=== PATIENT | male | born 1950 | race Caucasian/White ===

== ENCOUNTER 2024-05-25 15:04 | Inpatient (IN) | payer MEDICARE, SELFPAY ==
[2024-05-25] VITALS (28 sets, daily range): BP systolic 120–166; BP diastolic 67–103; PULSE 69–90; RESP 11–22; TEMP 36.3–36.4; O2SAT 86–99; BMI 28.5
--- NOTE | 2024-05-25 15:24 | EKG_ITS ---
[address] [id number] [address] [address] Test Date: 2024-05-25 Pat Name: Srinath Tinoco Department: Room: Gender: Male Services Program Manager: JESSICAJamie : 1950 Requested By: Order Number: [id number] Reading MD: Alcides Martínez MD Measurements Intervals [place] Rate: 78 P: [place]: 168 QRS: 166 QRSD: 138 T: 33 QT: 434 QTc: 494 Interpretive Statements AV dual-paced rhythm with occasional premature ventricular complexes Electronically Signed On 05-26-2024 8:26:12 PDT by Alcides Martínez MD
[2024-05-25 15:47] LABS: Add Manual Diff / Slide Review NO; Basophils Absolute Auto 100 /uL (0-100); Basophils Percent Auto 0.9 % (0-2); Eosinophils Absolute Auto 100 /uL (0-450); Eosinophils Percent Auto 1.2 % (2-4); Hematocrit 40.7 % (41-53); Hemoglobin 13.9 g/dL (13.5-17.5); Lymphocytes Absolute Auto 1600 /uL (1100-4500); Lymphocytes Percent Auto 23.5 % (25-40); Mean Corpuscular Hemoglobin 31.5 PG (26-34); Mean Corpuscular Volume 92.5 fL (80-100); Monocytes Absolute Auto 400 /uL (0-900); Neutrophils Absolute Auto 4700 /uL (1500-7000); Neutrophils Percent Auto 68.4 % (50-75); Platelet Count 225 X10^3/uL (150-400); Red Blood Cell Count 4.41 X10^6/uL (4.5-5.9); Red Cell Distribution Width 13.7 % (11.6-14.8); White Blood Cell Count 6.8 X10^3/uL (4.5-11.0)
[2024-05-25 15:55] LABS: Alanine Aminotransferase 29 IU/L (<50); Albumin 4.6 g/dL (3.5-5.0); Albumin Globulin Ratio 1.3 (1.0-2.8); Alkaline Phosphatase 111 U/L (38-126); Aspartate Aminotransferase 34 IU/L (17-59); BUN Creatinine Ratio 12.9 (6-22); Bilirubin Total 0.9 mg/dL (0.2-1.3); Blood Urea Nitrogen 16 mg/dL (9-20); Calcium 10.1 mg/dL (8.4-10.2); Carbon Dioxide 27 mmol/L (22-32); Chloride 103 mmol/L (98-107); Estimated Glomerular Filt Rate > 60 mL/min (>60); Globulin 3.6 g/dL (1.7-4.1); Glucose 103 mg/dL (80-110); HEMOLYSIS < 15 (0-50); Lipase 100 U/L (23-300); Potassium 4.1 mmol/L (3.4-5.1); Sodium 137 mmol/L (137-145); Total Protein 8.2 g/dL (6.3-8.2)
--- NOTE | 2024-05-25 16:05 | ED.GENADULT ---
HPI - General Adult <Janine Freeman MD - Last Filed: 05/30/24 07:12> General Chief complaint: Abdominal Pain Stated complaint: digestive issues sent by [facility] Time Seen by Provider: 05/25/24 15:47 Mode of arrival: Family Vehicle History of Present Illness HPI narrative: 74-year-old gentleman with multiple abdominal issues after diverticulitis with complications open abdominal surgery ended up having a stomach stapling same time for weight loss he has had bleeding ulcers presumably related to the stomach stapling. He does have a history of gastritis is currently on omeprazole for the last 24 hours has been having increasing abdominal distention and significant pain. Additional problems include pacemaker, diabetes. Not currently having chest pain he is nauseated but not vomiting. States that he had a bowel movement yesterday. Has not had any gas passing over the last 12 hours but states that he took quite a bit of Gas-X to relieve the gas. Related Data Home Medications Medication Instructions Recorded Confirmed atorvastatin 20 mg tablet 20 mg PO ONCE PM 05/25/24 05/25/24 empagliflozin 10 mg tablet 10 mg PO DAILY 05/25/24 05/25/24 (Jardiance) ezetimibe 10 mg tablet 10 mg PO DAILY 05/25/24 05/25/24 irbesartan 300 mg tablet 300 mg PO DAILY 05/25/24 05/25/24 nebivolol 5 mg tablet 5 mg PO DAILY 05/25/24 05/25/24 omeprazole 40 mg capsule,delayed 40 mg PO BID 05/25/24 05/25/24 release semaglutide 0.25 mg or 0.5 mg (2 1 mg SUBCUT WEEKLY Diabetes 05/25/24 05/25/24 mg/3 mL) subcutaneous pen injector (Ozempic) sucralfate 1 gram tablet 1 g PO BID 05/25/24 05/25/24 testosterone 2 pump topical DAILY 05/25/24 05/25/24 Allergies Allergy/AdvReac Type Severity Reaction Status Date / Time No Known Drug Allergies Allergy Verified 05/25/24 15:16 Review of Systems <Janine Freeman MD - Last Filed: 05/30/24 07:12> Review of Systems Narrative: Pertinent positive and negative findings as per HPI Patient History <Janine Freeman MD - Last Filed: 05/30/24 07:12> Medical History History of gastric ulcer History of diverticulitis Pacemaker Surgical History History of gastric stapling Social History household members: family Smoking Status: Never smoker Smoking Status: Never smoker alcohol intake frequency: 3 or more drinks per day Substance Use Type: does not use Exam <Janine Freeman MD - Last Filed: 05/30/24 07:12> Initial Vital Signs Initial Vital Signs: Vital Signs Temperature 97.5 F L 05/25/24 15:12 Pulse Rate 74 05/25/24 15:12 Respiratory Rate 16 05/25/24 15:12 Pulse Oximetry 98 05/25/24 15:12 Oxygen Delivery Method Room Air 05/25/24 15:12 General: Healthy appearing, in no acute distress. Able to give a complete and coherent history. Well-nourished well-developed HEENT: Moist mucous membranes, normal sclera with reactive pupils, Respiratory: Lungs are clear to auscultation, no wheezing no rales no rhonchi. Full and symmetrical air movement Cardiac: Regular rate and rhythm no murmurs no bruits Abdomen: Belly is distended, tender without rebound or guarding Skin: Warm and dry, no rashes Neurologic: Grossly neurologically intact with no obvious asymmetries or abnormalities Extremities: No trauma, Psych: Cooperative, appropriate insight and affect <Kimberlee Cam MD - Last Filed: 05/26/24 01:25> Initial Vital Signs Initial Vital Signs: Vital Signs Temperature 97.5 F L 05/25/24 15:12 Pulse Rate 74 05/25/24 15:12 Respiratory Rate 16 05/25/24 15:12 Pulse Oximetry 98 05/25/24 15:12 Oxygen Delivery Method Room Air 05/25/24 15:12 Course <Janine Freeman MD - Last Filed: 05/30/24 07:12> Orders Ordered: Discontinued Medications Acetaminophen (Acetaminophen 325 Mg Tablet) 650 mg PO Q6H PRN PRN Reason: Fever/Mild Pain (1-3) Acetaminophen (Acetaminophen 325 Mg Tablet) 650 mg PO NOW ONE Stop: 05/25/24 22:54 Last Admin: 05/26/24 00:01 Dose: Not Given Documented By: ESTRELLA Bupivacaine HCl (Bupivacaine 0.5% (Pf) 30 Ml Vial) 30 ml INJ NOW ONE Stop: 05/25/24 22:23 Last Admin: 05/25/24 22:22 Dose: 10 ml Documented By: CLAY Bupivacaine HCl/Epinephrine Bitart (Bupivacaine 0.5% W/ Epi (Pf) 30 Ml Vial) 30 ml INJ NOW ONE Stop: 05/25/24 22:09 Last Admin: 05/26/24 07:23 Dose: Not Given Documented By: Enoxaparin Sodium (Enoxaparin 40 Mg/0.4 Ml Syringe) 40 mg SUBCUT DAILY [facility] Last Admin: 05/26/24 08:30 Dose: 40 mg Documented By: Fentanyl (Fentanyl 100 Mcg/2 Ml Inj) 0 mcg IV Q5MIN PRN PRN Reason: Pain, Severe (7-10) Hydromorphone HCl (Hydromorphone 0.5 Mg Inj) 0.5 mg IV Q15MIN PRN PRN Reason: Pain, Last Admin: 05/25/24 17:49 Dose: 0.5 mg Documented By: LAZARO Hydromorphone HCl (Hydromorphone 1 Mg Inj) 1 mg IV NOW ONE Stop: 05/25/24 19:34 Last Admin: 05/25/24 19:47 Dose: 1 mg Documented By: SVEN Hydromorphone HCl (Hydromorphone 0.5 Mg Inj) 0.5 mg IV Q2H PRN PRN Reason: Pain, Severe (7-10) Hydromorphone HCl (Hydromorphone 1 Mg Inj) 0 mg IV Q5MIN PRN PRN Reason: Pain, Mild (1-3) Sodium Chloride (Normal Saline 0.9%) 1,000 mls @ 1,000 mls/hr IV BOLUS ONE Stop: 05/25/24 18:11 Last Infusion: 05/25/24 18:51 Dose: Infused Documented By: Admin: 05/25/24 17:50 Dose: 1,000 mls/hr Documented By: LAZARO Sodium Chloride (Normal Saline 0.9%) 1,000 mls @ 100 mls/hr IV CONT [facility] Last Admin: 05/25/24 23:35 Dose: Not Given Documented By: ESTRELLA Metronidazole (Flagyl) 500 mg in 100 mls @ 100 mls/hr IV NOW ONE Stop: 05/25/24 23:06 Last Infusion: 05/25/24 23:15 Dose: Infused Documented By: Admin: 05/25/24 21:30 Dose: 100 mls/hr Documented By: MONCIA Cefazolin Sodium/Dextrose (Ancef) 100 mls @ 200 mls/hr IV NOW ONE Stop: 05/25/24 22:36 Last Infusion: 05/25/24 23:14 Dose: Infused Documented By: Admin: 05/25/24 21:25 Dose: 200 mls/hr Documented By: MONICA Lactated Ringer's (Lactated Ringers) 1,000 mls @ 125 mls/hr IV CONT [facility] Last Admin: 05/25/24 23:33 Dose: 125 mls/hr Documented By: ESTRELLA Ketorolac Tromethamine (Ketorolac 30 Mg/Ml Vial) 15 mg IV Q6H PRN PRN Reason: Pain, Moderate (4-6) Stop: 05/30/24 22:53 Lidocaine/Epinephrine (Lidocaine 1% W/Epi) 20 ml INJ NOW ONE Stop: 05/25/24 22:09 Last Admin: 05/25/24 22:08 Dose: 10 ml Documented By: CLAY Morphine Sulfate (Morphine 4 Mg/Ml Inj) 3 mg IV Q2HR [facility] Last Admin: 05/26/24 07:23 Dose: Not Given Documented By: Admin: 05/26/24 07:23 Dose: Not Given Documented By: Naloxone HCl (Naloxone 0.4 Mg/Ml Vial) 0.2 mg IV Q2MIN PRN PRN Reason: Opiate Reversal Naloxone HCl (Naloxone 0.4 Mg/Ml Vial) 0.2 mg IV Q2MIN PRN PRN Reason: Opiate Reversal Ondansetron HCl (Ondansetron 4 Mg/2 Ml Inj) 4 mg IV NOW PRN PRN Reason: Nausea And Vomiting Ondansetron HCl (Ondansetron 4 Mg Odt) 4 mg PO NOW PRN PRN Reason: Nausea And Vomiting Ondansetron HCl (Ondansetron 4 Mg/2 Ml Inj) 4 mg IV NOW ONE Stop: 05/25/24 17:13 Last Admin: 05/25/24 17:49 Dose: 4 mg Documented By: LAZARO Ondansetron HCl (Ondansetron 4 Mg/2 Ml Inj) 4 mg IV Q4HR PRN PRN Reason: Nausea And Vomiting Ondansetron HCl (Ondansetron 4 Mg/2 Ml Inj) 4 mg IV NOW PRN PRN Reason: Nausea And Vomiting Oxycodone HCl (Oxycodone Ir 5 Mg Tablet) 5 mg PO PACUNOW PRN PRN Reason: Mild or moderate pain Pantoprazole Sodium (Pantoprazole 40 Mg Vial) 80 mg IV NOW ONE Stop: 05/25/24 17:13 Last Admin: 05/25/24 17:49 Dose: 80 mg Documented By: LAZARO Sennosides (Sennosides 8.6 Mg Tablet) 17.2 mg PO DAILY [facility] Last Admin: 05/26/24 08:30 Dose: 17.2 mg Documented By: Vital Signs Vital signs: Vital Signs - 8 hr 05/25/24 17:30 05/25/24 17:30 05/25/24 18:04 Pulse Rate 71 72 Respiratory Rate 12 22 Blood Pressure 166/103 H Pulse Oximetry 97 92 Oxygen Delivery Method Oxygen Flow Rate 05/25/24 18:05 05/25/24 18:05 05/25/24 18:30 Pulse Rate 72 70 Respiratory Rate 14 13 Blood Pressure 157/94 H Pulse Oximetry 97 86 L 97 Oxygen Delivery Method Nasal Cannula Oxygen Flow Rate 2 05/25/24 18:31 05/25/24 18:31 05/25/24 18:49 Pulse Rate 70 Respiratory Rate 14 Blood Pressure 142/93 H 165/96 H Pulse Oximetry 97 Oxygen Delivery Method Oxygen Flow Rate 05/25/24 18:49 05/25/24 19:00 05/25/24 19:00 Pulse Rate 77 69 Respiratory Rate 17 13 Blood Pressure 148/82 H Pulse Oximetry 98 97 Oxygen Delivery Method Oxygen Flow Rate 05/25/24 19:30 05/25/24 19:30 05/25/24 20:00 Pulse Rate 70 69 Respiratory Rate Blood Pressure 146/94 H Pulse Oximetry 91 99 Oxygen Delivery Method Room Air Oxygen Flow Rate 05/25/24 20:00 Pulse Rate Respiratory Rate Blood Pressure 149/94 H Pulse Oximetry Oxygen Delivery Method Oxygen Flow Rate <Kimberlee Cam MD - Last Filed: 05/26/24 01:25> Orders Ordered: Discontinued Medications Acetaminophen (Acetaminophen 325 Mg Tablet) 650 mg PO Q6H PRN PRN Reason: Fever/Mild Pain (1-3) Acetaminophen (Acetaminophen 325 Mg Tablet) 650 mg PO NOW ONE Stop: 05/25/24 22:54 Last Admin: 05/26/24 00:01 Dose: Not Given Documented By: ESTRELLA Bupivacaine HCl (Bupivacaine 0.5% (Pf) 30 Ml Vial) 30 ml INJ NOW ONE Stop: 05/25/24 22:23 Last Admin: 05/25/24 22:22 Dose: 10 ml Documented By: CLAY Bupivacaine HCl/Epinephrine Bitart (Bupivacaine 0.5% W/ Epi (Pf) 30 Ml Vial) 30 ml INJ NOW ONE Stop: 05/25/24 22:09 Last Admin: 05/26/24 07:23 Dose: Not Given Documented By: Enoxaparin Sodium (Enoxaparin 40 Mg/0.4 Ml Syringe) 40 mg SUBCUT DAILY [facility] Last Admin: 05/26/24 08:30 Dose: 40 mg Documented By: Fentanyl (Fentanyl 100 Mcg/2 Ml Inj) 0 mcg IV Q5MIN PRN PRN Reason: Pain, Severe (7-10) Hydromorphone HCl (Hydromorphone 0.5 Mg Inj) 0.5 mg IV Q15MIN PRN PRN Reason: Pain, Last Admin: 05/25/24 17:49 Dose: 0.5 mg Documented By: LAZARO Hydromorphone HCl (Hydromorphone 1 Mg Inj) 1 mg IV NOW ONE Stop: 05/25/24 19:34 Last Admin: 05/25/24 19:47 Dose: 1 mg Documented By: SVEN Hydromorphone HCl (Hydromorphone 0.5 Mg Inj) 0.5 mg IV Q2H PRN PRN Reason: Pain, Severe (7-10) Hydromorphone HCl (Hydromorphone 1 Mg Inj) 0 mg IV Q5MIN PRN PRN Reason: Pain, Mild (1-3) Sodium Chloride (Normal Saline 0.9%) 1,000 mls @ 1,000 mls/hr IV BOLUS ONE Stop: 05/25/24 18:11 Last Infusion: 05/25/24 18:51 Dose: Infused Documented By: Admin: 05/25/24 17:50 Dose: 1,000 mls/hr Documented By: LAZARO Sodium Chloride (Normal Saline 0.9%) 1,000 mls @ 100 mls/hr IV CONT [facility] Last Admin: 05/25/24 23:35 Dose: Not Given Documented By: ESTRELLA Metronidazole (Flagyl) 500 mg in 100 mls @ 100 mls/hr IV NOW ONE Stop: 05/25/24 23:06 Last Infusion: 05/25/24 23:15 Dose: Infused Documented By: Admin: 05/25/24 21:30 Dose: 100 mls/hr Documented By: MONICA Cefazolin Sodium/Dextrose (Ancef) 100 mls @ 200 mls/hr IV NOW ONE Stop: 05/25/24 22:36 Last Infusion: 05/25/24 23:14 Dose: Infused Documented By: Admin: 05/25/24 21:25 Dose: 200 mls/hr Documented By: MONICA Lactated Ringer's (Lactated Ringers) 1,000 mls @ 125 mls/hr IV CONT [facility] Last Admin: 05/25/24 23:33 Dose: 125 mls/hr Documented By: ESTRELLA Ketorolac Tromethamine (Ketorolac 30 Mg/Ml Vial) 15 mg IV Q6H PRN PRN Reason: Pain, Moderate (4-6) Stop: 05/30/24 22:53 Lidocaine/Epinephrine (Lidocaine 1% W/Epi) 20 ml INJ NOW ONE Stop: 05/25/24 22:09 Last Admin: 05/25/24 22:08 Dose: 10 ml Documented By: CLAY Morphine Sulfate (Morphine 4 Mg/Ml Inj) 3 mg IV Q2HR [facility] Last Admin: 05/26/24 07:23 Dose: Not Given Documented By: Admin: 05/26/24 07:23 Dose: Not Given Documented By: Naloxone HCl (Naloxone 0.4 Mg/Ml Vial) 0.2 mg IV Q2MIN PRN PRN Reason: Opiate Reversal Naloxone HCl (Naloxone 0.4 Mg/Ml Vial) 0.2 mg IV Q2MIN PRN PRN Reason: Opiate Reversal Ondansetron HCl (Ondansetron 4 Mg/2 Ml Inj) 4 mg IV NOW PRN PRN Reason: Nausea And Vomiting Ondansetron HCl (Ondansetron 4 Mg Odt) 4 mg PO NOW PRN PRN Reason: Nausea And Vomiting Ondansetron HCl (Ondansetron 4 Mg/2 Ml Inj) 4 mg IV NOW ONE Stop: 05/25/24 17:13 Last Admin: 05/25/24 17:49 Dose: 4 mg Documented By: LAZARO Ondansetron HCl (Ondansetron 4 Mg/2 Ml Inj) 4 mg IV Q4HR PRN PRN Reason: Nausea And Vomiting Ondansetron HCl (Ondansetron 4 Mg/2 Ml Inj) 4 mg IV NOW PRN PRN Reason: Nausea And Vomiting Oxycodone HCl (Oxycodone Ir 5 Mg Tablet) 5 mg PO PACUNOW PRN PRN Reason: Mild or moderate pain Pantoprazole Sodium (Pantoprazole 40 Mg Vial) 80 mg IV NOW ONE Stop: 05/25/24 17:13 Last Admin: 05/25/24 17:49 Dose: 80 mg Documented By: LAZARO Sennosides (Sennosides 8.6 Mg Tablet) 17.2 mg PO DAILY [facility] Last Admin: 05/26/24 08:30 Dose: 17.2 mg Documented By: Vital Signs Vital signs: Vital Signs - 8 hr 05/25/24 17:30 05/25/24 17:30 05/25/24 18:04 Pulse Rate 71 72 Respiratory Rate 12 22 Blood Pressure 166/103 H Pulse Oximetry 97 92 Oxygen Delivery Method Oxygen Flow Rate 05/25/24 18:05 05/25/24 18:05 05/25/24 18:30 Pulse Rate 72 70 Respiratory Rate 14 13 Blood Pressure 157/94 H Pulse Oximetry 97 86 L 97 Oxygen Delivery Method Nasal Cannula Oxygen Flow Rate 2 05/25/24 18:31 05/25/24 18:31 05/25/24 18:49 Pulse Rate 70 Respiratory Rate 14 Blood Pressure 142/93 H 165/96 H Pulse Oximetry 97 Oxygen Delivery Method Oxygen Flow Rate 05/25/24 18:49 05/25/24 19:00 05/25/24 19:00 Pulse Rate 77 69 Respiratory Rate 17 13 Blood Pressure 148/82 H Pulse Oximetry 98 97 Oxygen Delivery Method Oxygen Flow Rate 05/25/24 19:30 05/25/24 19:30 05/25/24 20:00 Pulse Rate 70 69 Respiratory Rate Blood Pressure 146/94 H Pulse Oximetry 91 99 Oxygen Delivery Method Room Air Oxygen Flow Rate 05/25/24 20:00 Pulse Rate Respiratory Rate Blood Pressure 149/94 H Pulse Oximetry Oxygen Delivery Method Oxygen Flow Rate Medical Decision Making <Janine Freeman MD - Last Filed: 05/30/24 07:12> Lab Data 05/26/24 03:51 05/26/24 03:51 Labs: Lab Results 05/25/24 05/25/24 Range/Units 15:30 19:37 WBC 6.8 (4.5-11.0) X10^3/uL RBC 4.41 L (4.5-5.9) X10^6/uL Hgb 13.9 (13.5-17.5) g/dL Hct 40.7 L (41-53) % MCV 92.5 (80-100) fL MCH 31.5 (26-34) PG MCHC 34.0 (30-36) % RDW 13.7 (11.6-14.8) % Plt Count 225 (150-400) X10^3/uL Neut % (Auto) 68.4 (50-75) % Lymph % (Auto) 23.5 L (25-40) % Isabella % (Auto) 6.0 (3-14) % Eos % (Auto) 1.2 L (2-4) % Baso % (Auto) 0.9 (0-2) % Neut # (Auto) 4700 (3788-7810) /uL Lymph # (Auto) 1600 (4410-6174) /uL Isabella # (Auto) 400 (0-900) /uL Eos # (Auto) 100 (0-450) /uL Baso # (Auto) 100 (0-100) /uL Sodium 137 (137-145) mmol/L Potassium 4.1 (3.4-5.1) mmol/L Chloride 103 (98-107) mmol/L Carbon Dioxide 27 (22-32) mmol/L BUN 16 (9-20) mg/dL Creatinine 1.24 (0.66-1.25) mg/dL Estimated GFR > 60 (>60) mL/min BUN/Creatinine Ratio 12.9 (6-22) Glucose 103 (80-110) mg/dL Lactate 1.0 (0.7-2.1) mmol/L Calcium 10.1 (8.4-10.2) mg/dL Total Bilirubin 0.9 (0.2-1.3) mg/dL AST 34 (17-59) IU/L ALT 29 (<50) IU/L Alkaline Phosphatase 111 (38-126) U/L Total Protein 8.2 (6.3-8.2) g/dL Albumin 4.6 (3.5-5.0) g/dL Globulin 3.6 (1.7-4.1) g/dL Albumin/Globulin Ratio 1.3 (1.0-2.8) Lipase 100 (23-300) U/L Urine Dip Bedside Urine Glucose 1000 mg/dl Bedside Urine Bilirubin - Negative Bedside Urine Ketone - Negative Urine Specific [place] 1.010 Bedside Urine Occult Blood - Negative Bedside Urine pH 7.0 Bedside Urine Protein - Negative Bedside Urine Urobilinogen - Negative Bedside Urine Nitrite - Negative Bedside Urine Leukocytes - Negative Esterase Point of care testing: Urine Dip Bedside Urine Glucose 1000 mg/dl Bedside Urine Bilirubin - Negative Bedside Urine Ketone - Negative Urine Specific [place] 1.010 Bedside Urine Occult Blood - Negative Bedside Urine pH 7.0 Bedside Urine Protein - Negative Bedside Urine Urobilinogen - Negative Bedside Urine Nitrite - Negative Bedside Urine Leukocytes - Negative Esterase [facility] Narrative Medical decision making narrative: 74-year-old gentleman with multiple abdominal issues after diverticulitis with complications open abdominal surgery ended up having a stomach stapling same time for weight loss he has had bleeding ulcers presumably related to the stomach stapling. He does have a history of gastritis is currently on omeprazole for the last 24 hours has been having increasing abdominal distention and significant pain. Additional problems include pacemaker, diabetes Labs: Normal white cell count with out evidence of anemia Chemistries are unremarkable Lipase is reassuring EKG shows paced rhythm at a rate of 78 Imaging studies: <Kimberlee Cam MD - Last Filed: 05/26/24 01:25> Lab Data Labs: Lab Results 05/25/24 05/25/24 Range/Units 15:30 19:37 WBC 6.8 (4.5-11.0) X10^3/uL RBC 4.41 L (4.5-5.9) X10^6/uL Hgb 13.9 (13.5-17.5) g/dL Hct 40.7 L (41-53) % MCV 92.5 (80-100) fL MCH 31.5 (26-34) PG MCHC 34.0 (30-36) % RDW 13.7 (11.6-14.8) % Plt Count 225 (150-400) X10^3/uL Neut % (Auto) 68.4 (50-75) % Lymph % (Auto) 23.5 L (25-40) % Isabella % (Auto) 6.0 (3-14) % Eos % (Auto) 1.2 L (2-4) % Baso % (Auto) 0.9 (0-2) % Neut # (Auto) 4700 (7665-5462) /uL Lymph # (Auto) 1600 (8227-4951) /uL [place] # (Auto) 400 (0-900) /uL Eos # (Auto) 100 (0-450) /uL Baso # (Auto) 100 (0-100) /uL Sodium 137 (137-145) mmol/L Potassium 4.1 (3.4-5.1) mmol/L Chloride 103 (98-107) mmol/L Carbon Dioxide 27 (22-32) mmol/L BUN 16 (9-20) mg/dL Creatinine 1.24 (0.66-1.25) mg/dL Estimated GFR > 60 (>60) mL/min BUN/Creatinine Ratio 12.9 (6-22) Glucose 103 (80-110) mg/dL Lactate 1.0 (0.7-2.1) mmol/L Calcium 10.1 (8.4-10.2) mg/dL Total Bilirubin 0.9 (0.2-1.3) mg/dL AST 34 (17-59) IU/L ALT 29 (<50) IU/L Alkaline Phosphatase 111 (38-126) U/L Total Protein 8.2 (6.3-8.2) g/dL Albumin 4.6 (3.5-5.0) g/dL Globulin 3.6 (1.7-4.1) g/dL Albumin/Globulin Ratio 1.3 (1.0-2.8) Lipase 100 (23-300) U/L Urine Dip Bedside Urine Glucose 1000 mg/dl Bedside Urine Bilirubin - Negative Bedside Urine Ketone - Negative Urine Specific [place] 1.010 Bedside Urine Occult Blood - Negative Bedside Urine pH 7.0 Bedside Urine Protein - Negative Bedside Urine Urobilinogen - Negative Bedside Urine Nitrite - Negative Bedside Urine Leukocytes - Negative Esterase Point of care testing: Urine Dip Bedside Urine Glucose 1000 mg/dl Bedside Urine Bilirubin - Negative Bedside Urine Ketone - Negative Urine Specific [place] 1.010 Bedside Urine Occult Blood - Negative Bedside Urine pH 7.0 Bedside Urine Protein - Negative Bedside Urine Urobilinogen - Negative Bedside Urine Nitrite - Negative Bedside Urine Leukocytes - Negative Esterase Imaging Data CT scan - abdomen/pelvis: Radiologist's Impression: PROCEDURE: CT ABDOMEN PELVIS W CON INDICATIONS: abdominal pain TECHNIQUE: After the administration of intravenous contrast, axial sections acquired from the lung bases to the pubic symphysis. Coronal and sagittal reformats were performed. For radiation dose reduction, the following was used: automated exposure control, adjustment of mA and/or kV according to patient size. COMPARISON: None. FINDINGS: Image quality: Diagnostic. Lower Chest: Bibasilar dependent atelectasis is seen. Heart size is enlarged, no pericardial effusion. Pacemaker leads are noted. ABDOMEN: Liver: No solid mass. Mild hepatic steatosis is seen. Gallbladder: No radiopaque gallstones or wall thickening. Biliary ducts: No biliary dilation. Pancreas: No ductal dilation. Spleen: Size is within normal limits. Adrenal Glands: No adrenal nodules. Kidneys and Ureters: No hydronephrosis. No solid mass. Simple appearing bilateral renal cysts are seen and measures up to 6.2 x 6.9 cm in size in lower pole right kidney. No complex renal cystic lesion which requires follow up. Stomach and Bowel: Extensive postsurgical changes are noted from prior colectomy with surgical anastomosis seen in left side of abdomen. There is a long segment of fluid distended small bowel loops with air-fluid level and wall enhancement measures up to 4.8 cm in diameter with definitive caliber change distally best seen on series 2, image 49 caliber change in anterior mid abdomen best seen on series 4, image 16 and series 2 image 34. Swirling of adjacent mesenteric fat associated with this loop of bowel is noted best seen on series 2, image 35 concerning for volvulus. There is no signs of perforation. No discrete drainable abscess collection. No other area of abnormal bowel loop distension or wall thickening. Peritoneum: No abnormal intraperitoneal fluid. No free air. Ventral Wall: No significant ventral hernia. Abdominal Nodes: No retroperitoneal or mesenteric adenopathy by size criteria. Vessels: Aorta and inferior vena cava are normal in size. PELVIS: Pelvic Organs: Unremarkable. Bladder: No bladder wall thickening, accounting for underdistention. Pelvic Nodes: No enlarged lymph nodes. Miscellaneous: No inguinal hernias are seen. Bones: No aggressive osseous abnormality. IMPRESSION: 1. A segment of fluid distended small bowel loops seen in predominantly upper to mid abdomen with transition zone seen proximal and distal to the distended bowel loops as described above and associated mesenteric swelling concerning for small bowel volvulus. 2. Postsurgical changes predominantly in left side of abdomen. Normal appendix. No other area of abnormal bowel wall thickening. No free fluid or free air. No abscess collection. 3. Bilateral simple appearing renal cysts. No hydronephrosis or obstructing renal stones. Dictated by: Javier Silva M.D. on 05/25/2024 at 18:20 Approved by: Javier Silva M.D. on 05/25/2024 at 18:29 Chest x-ray: Radiologist's Impression: PROCEDURE: XR CHEST 1V INDICATIONS: low O2 sats TECHNIQUE: One view of the chest was acquired. COMPARISON: None. FINDINGS: Surgical changes and devices: Left chest wall pacemaker leads are in the region of right atrium, right ventricle and left ventricle. Lungs and pleura: Lungs are clear. No pleural effusions or pneumothorax. Mediastinum: Mediastinal contours appear normal. Heart size is enlarged. Bones and chest wall: No suspicious bony lesions. Overlying soft tissues appear unremarkable. IMPRESSION: No acute cardiopulmonary pathology. Dictated by: Javier Silva M.D. on 05/25/2024 at 19:51 Approved by: Javier Silva M.D. on 05/25/2024 at 19:51 [facility] Narrative Medical decision making narrative: 74-year-old gentleman with multiple abdominal issues after diverticulitis with complications open abdominal surgery ended up having a stomach stapling same time for weight loss he has had bleeding ulcers presumably related to the stomach stapling. He does have a history of gastritis is currently on omeprazole for the last 24 hours has been having increasing abdominal distention and significant pain. Additional problems include pacemaker, diabetes Labs: Normal white cell count with out evidence of anemia Chemistries are unremarkable Lipase is reassuring EKG shows paced rhythm at a rate of 78 Imaging studies: Dr. Cam -care of patient is signed out to me by Dr. Freeman, independent review of patient and chart performed by myself. On exam patient's abdomen is soft but he was quite tender, especially in the upper quadrants of the abdomen. Requesting additional pain medications. Patient denies history of lung disease, however on room air patient is saturating 85%. Placed on 2L O2 with improvement of saturations to upper 90s. CT scan shows what appears to be small bowel volvulus. Case discussed with on-call General surgery Dr. Troncoso, who requested admit to medical service and he will take patient to OR for assessment. Discharge Plan Departure Patient Disposition: Admitted to Surgery Clinical Impression: Volvulus of intestine Admit Date/Time: 05/25/24 20:20 Admit Provider: Trevon Sanchez
--- NOTE | 2024-05-25 17:12 | DI.CT.S_ITS ---
PROCEDURE: CT ABDOMEN PELVIS W CON INDICATIONS: abdominal pain TECHNIQUE: After the administration of intravenous contrast, axial sections acquired from the lung bases to the pubic symphysis. Coronal and sagittal reformats were performed. For radiation dose reduction, the following was used: automated exposure control, adjustment of mA and/or kV according to patient size. COMPARISON: None. FINDINGS: Image quality: Diagnostic. Lower Chest: Bibasilar dependent atelectasis is seen. Heart size is enlarged, no pericardial effusion. Pacemaker leads are noted. ABDOMEN: Liver: No solid mass. Mild hepatic steatosis is seen. Gallbladder: No radiopaque gallstones or wall thickening. Biliary ducts: No biliary dilation. Pancreas: No ductal dilation. Spleen: Size is within normal limits. Adrenal Glands: No adrenal nodules. Kidneys and Ureters: No hydronephrosis. No solid mass. Simple appearing bilateral renal cysts are seen and measures up to 6.2 x 6.9 cm in size in lower pole right kidney. No complex renal cystic lesion which requires follow up. Stomach and Bowel: Extensive postsurgical changes are noted from prior colectomy with surgical anastomosis seen in left side of abdomen. There is a long segment of fluid distended small bowel loops with air-fluid level and wall enhancement measures up to 4.8 cm in diameter with definitive caliber change distally best seen on series 2, image 49 caliber change in anterior mid abdomen best seen on series 4, image 16 and series 2 image 34. Swirling of adjacent mesenteric fat associated with this loop of bowel is noted best seen on series 2, image 35 concerning for volvulus. There is no signs of perforation. No discrete drainable abscess collection. No other area of abnormal bowel loop distension or wall thickening. Peritoneum: No abnormal intraperitoneal fluid. No free air. Ventral Wall: No significant ventral hernia. Abdominal Nodes: No retroperitoneal or mesenteric adenopathy by size criteria. Vessels: Aorta and inferior vena cava are normal in size. PELVIS: Pelvic Organs: Unremarkable. Bladder: No bladder wall thickening, accounting for underdistention. Pelvic Nodes: No enlarged lymph nodes. Miscellaneous: No inguinal hernias are seen. Bones: No aggressive osseous abnormality. IMPRESSION: 1. A segment of fluid distended small bowel loops seen in predominantly upper to mid abdomen with transition zone seen proximal and distal to the distended bowel loops as described above and associated mesenteric swelling concerning for small bowel volvulus. 2. Postsurgical changes predominantly in left side of abdomen. Normal appendix. No other area of abnormal bowel wall thickening. No free fluid or free air. No abscess collection. 3. Bilateral simple appearing renal cysts. No hydronephrosis or obstructing renal stones. Dictated by: Javier Silva M.D. on 05/25/2024 at 18:20 Approved by: Javier Silva M.D. on 05/25/2024 at 18:29
[2024-05-25] MEDS: PANTOPRAZOLE 40 MG VIAL 80 MG IV (17:49)
[2024-05-25] MEDS: HYDROMORPHONE 0.5 MG INJ IV (17:49)
[2024-05-25] MEDS: ONDANSETRON 4 MG/2 ML INJ IV (17:49)
[2024-05-25] MEDS: SODIUM CHLORIDE 0.9% 1,000 ML 1000 ML IV (17:50)
--- NOTE | 2024-05-25 19:37 | DI.RAD.S_ITS ---
PROCEDURE: XR CHEST 1V INDICATIONS: low O2 sats TECHNIQUE: One view of the chest was acquired. COMPARISON: None. FINDINGS: Surgical changes and devices: Left chest wall pacemaker leads are in the region of right atrium, right ventricle and left ventricle. Lungs and pleura: Lungs are clear. No pleural effusions or pneumothorax. Mediastinum: Mediastinal contours appear normal. Heart size is enlarged. Bones and chest wall: No suspicious bony lesions. Overlying soft tissues appear unremarkable. IMPRESSION: No acute cardiopulmonary pathology. Dictated by: Javier Silva M.D. on 05/25/2024 at 19:51 Approved by: Javier Silva M.D. on 05/25/2024 at 19:51
[2024-05-25] MEDS: HYDROMORPHONE 1 MG INJ IV (19:47)
--- NOTE | 2024-05-25 20:33 | P.CONS_ITS ---
History of Present Illness Consult details Date Patient Seen: 05/25/24 Time Patient Seen: 20:00 Chief complaint: digestive issues sent by [facility] Reason for consult: Volvulous Narrative: SURGICAL CONSULTATION Date of Admission: 05/25/24 Date of Consultation: 05/25/24 PCP: Doctor Jennifer MD Thank you Dr. AYOUB very much for your consultation, it's always appreciated. I had the privilege today to see your patient Srinath Tinoco. Chief Complaint / History of Present Illness: Srinath Tinoco is a very pleasant 74 yo Male who presents with pain in the abdomen, upper abdominal pain x 30 hours (said it started yesterday at 4 pm), severe, with nausea and vomiting, CT revealed small intestinal volvulous, and exam concerning, labs NORMAL, but extensive surgical history, of lap gastric band, bowel perforation, removal of the band, conversion to gastric bypass, and diverticulitis, emergency surgery.. among others... last 2008, no problem since, till yesterday.. Will laparoscopically explore him, possible bowel resection, possible open, and possible stoma.. I explained to him, and he was convinced and agreed. Review of Systems: Constitutional: Negative for fever, chills, diaphoresis, appetite change and fatigue. HENT: Negative for sore throat, trouble swallowing and voice change. Respiratory: Negative for cough, positive for shortness of breath no wheezing. Cardiovascular: Negative for chest pain positive for SOB with one flight of stairs exertion, no pitting LE edema. Gastrointestinal: Positive for abdominal pain, nausea, vomiting, abdominal distention, constipation, no diarrhea, blood in stool, anal bleeding or rectal pain. Musculoskeletal: Negative for joint swelling and arthralgias. Skin: Warm and dry, well perfused. Neurological: Negative for seizures, syncope, speech difficulty and weakness. Hematological/Lymphatic: Negative for adenopathy. No history of DVT/PE. Does not bruise/bleed easily. Psychiatric/Behavioral: Negative for agitation. All others reviewed and negative. Physical Exam: General appearance: Pt Alert and oriented, in no apparent acute distress. HEENT: JOHN, Conjunctiva clear. EOMI, No JVDs, Bruits, Megalies: neither thyroid nor lymph nodes. Lungs: Clear to auscultation bilaterally. Heart: Regular rate and rhythm, S1, S2 normal, no murmur, rub or gallop. Abdomen: Significantly tender epigastrium and LUQ. Distended. No hernias noted, no masses palpable. Extremities: Warm, well perfused, no cyanosis or edema. Skin: Skin color, texture, turgor normal. Neurologic: Grossly normal, Cranial nerves from II to XII intact, Deep tendon reflexes normal. Lymph nodes: No palpable LNs, Cervical, groins, abdominal. Musculoskeletal: Bilateral Upper and lower extremities ROM within normal limits. Radiologic / Imaging / TESTING See report and pictures. Assessment & plan: Srinath Tinoco is a very pleasant 74 yo Male who presents with pain in the abdomen, upper abdominal pain x 30 hours (said it started yesterday at 4 pm), severe, with nausea and vomiting, CT revealed small intestinal volvulous, and exam concerning, labs NORMAL, but extensive surgical history, of lap gastric band, bowel perforation, removal of the band, conversion to gastric bypass, and diverticulitis, emergency surgery.. among others... last 2008, no problem since, till yesterday.. Will laparoscopically explore him, possible bowel resection, possible open, and possible stoma.. I explained to him, and he was convinced and agreed. Continue NPO/Bowel rest, IV Fluids, Pain control, Nausea control, IV Antibiotics. Thank you doctor very much for your consultation and for the opportunity to take care of Mr Mrs Tinoco with you, I'll follow along with you and I'll update you on any new events in his care. Meds Home Medications and Allergies Allergies Allergy/AdvReac Type Severity Reaction Status Date / Time No Known Drug Allergies Allergy Verified 05/25/24 15:16 Exam Vital Signs (past 8 hours): - 05/25/24 15:12 05/25/24 15:49 05/25/24 15:51 Temperature 97.5 F L Pulse Rate 74 72 70 Respiratory Rate 16 18 Blood Pressure Pulse Oximetry 98 96 Oxygen Delivery Method Room Air Oxygen Flow Rate 05/25/24 15:51 05/25/24 16:00 05/25/24 16:00 Temperature Pulse Rate 69 Respiratory Rate 13 Blood Pressure 144/96 H 137/90 Pulse Oximetry 93 Oxygen Delivery Method Oxygen Flow Rate 05/25/24 16:30 05/25/24 16:30 05/25/24 17:00 Temperature Pulse Rate 69 69 Respiratory Rate 11 L 17 Blood Pressure 152/94 H Pulse Oximetry 95 95 Oxygen Delivery Method Oxygen Flow Rate 05/25/24 17:00 05/25/24 17:30 05/25/24 17:30 Temperature Pulse Rate 71 Respiratory Rate 12 Blood Pressure 146/95 H 166/103 H Pulse Oximetry 97 Oxygen Delivery Method Oxygen Flow Rate 05/25/24 18:04 05/25/24 18:05 05/25/24 18:05 Temperature Pulse Rate 72 72 Respiratory Rate 22 14 Blood Pressure 157/94 H Pulse Oximetry 92 97 86 L Oxygen Delivery Method Nasal Cannula Oxygen Flow Rate 2 05/25/24 18:30 05/25/24 18:31 05/25/24 18:31 Temperature Pulse Rate 70 70 Respiratory Rate 13 14 Blood Pressure 142/93 H Pulse Oximetry 97 97 Oxygen Delivery Method Oxygen Flow Rate 05/25/24 18:49 05/25/24 18:49 05/25/24 19:00 Temperature Pulse Rate 77 69 Respiratory Rate 17 13 Blood Pressure 165/96 H Pulse Oximetry 98 97 Oxygen Delivery Method Oxygen Flow Rate 05/25/24 19:00 05/25/24 19:30 05/25/24 19:30 Temperature Pulse Rate 70 Respiratory Rate Blood Pressure 148/82 H 146/94 H Pulse Oximetry 91 Oxygen Delivery Method Oxygen Flow Rate 05/25/24 20:00 05/25/24 20:00 Temperature Pulse Rate 69 Respiratory Rate Blood Pressure 149/94 H Pulse Oximetry 99 Oxygen Delivery Method Room Air Oxygen Flow Rate Oxygen Delivery Method Room Air Oxygen Flow Rate 2 Objective Labs 05/25/24 15:30 05/25/24 15:30 Labs: Laboratory Results - last 24 hr 05/25/24 05/25/24 15:30 19:37 WBC 6.8 RBC 4.41 L Hgb 13.9 Hct 40.7 L MCV 92.5 MCH 31.5 MCHC 34.0 RDW 13.7 Plt Count 225 Neut % (Auto) 68.4 Lymph % (Auto) 23.5 L [place] % (Auto) 6.0 Eos % (Auto) 1.2 L Baso % (Auto) 0.9 Neut # (Auto) 4700 Lymph # (Auto) 1600 [place] # (Auto) 400 Eos # (Auto) 100 Baso # (Auto) 100 Sodium 137 Potassium 4.1 Chloride 103 Carbon Dioxide 27 BUN 16 Creatinine 1.24 Estimated GFR > 60 BUN/Creatinine Ratio 12.9 Glucose 103 Lactate 1.0 Calcium 10.1 Total Bilirubin 0.9 AST 34 ALT 29 Alkaline Phosphatase 111 Total Protein 8.2 Albumin 4.6 Globulin 3.6 Albumin/Globulin Ratio 1.3 Lipase 100 PFSH Medical History (Updated 05/25/24 @ 18:11 by Janine Freeman MD) History of gastric ulcer History of diverticulitis Pacemaker Surgical History (Updated 05/25/24 @ 18:11 by Janine Freeman MD) History of gastric stapling Tobacco & Substance Use Smoking Status: Never smoker Assessment & Plan Time-Based Coding :: [TOTAL MINUTES] spent with patient and on the chart (including review of chart, obtaining history, exam, reviewing outside data, placing orders, documenting exam and treatment plan, and counseling patient) on [DATE].
--- NOTE | 2024-05-25 20:42 | P.OP_ITS ---
Procedure & Clinicians Procedure: Exploratory laparoscopy and Lysis of adhesions Same procedure as scheduled: Yes Surgeon: Evelin Troncoso Anesthesia Type: General and Local Operative Notes Procedure in detail: LAPAROSCOPIC Exploration and lysis of adhesions OPERATIVE NOTE Srinath Tinoco, 1950, 74, Male, CSN: [id number] 05/25/24 PRE-OP DIAGNOSIS: Small bowel obstruction, and suspected small intestines volvulous. POST-OP DIAGNOSIS: Same, but ruled out volvulous, and lysed the obstructing adhesion, to relieve the obstruction. PROCEDURE(S): Laparoscopic lysis of the obstructing adhesion, and relieved the obstruction.. SURGEON(S): Evelin Troncoso MD, FACS, FICS LAMINATION OPERATOR(S): NONE ANESTHESIA: GET + Local 1% Xylocaine with Epinephrine, 0.5% Marcaine, pre and post operatively. SPECIMENS: None. ESTIMATED BLOOD LOSS: Less then 2 ml DRAIN: NONE COMPLICATIONS: NONE CONDITION / DISPOSITION: Stable, Extubated, to PACU OPERATIVE DESCRIPTION: After properly informed consent was signed by the patient, knowing all the risks, benefits, potential complications and possible alternatives of the procedure, the patient, who had a MAJOR surgical abdominal history, but last was 2008, without any problems since, presented more than 24 hrs after epigasrtic pain, and nausea and vomiting, and CT revealed a small bowel obstruction, and questioned a volvulous. The patient was appropriately identified. In the holding area he received 2 gram of Ancef and 500 mg of Flagyl IV. TEDs and SCDs were placed on his legs and activated bilaterally. He was taken to the operating room, and was placed supine on the operating room table, and after institution of general endotracheal anesthesia, his abdomen was prepped and draped in the usual sterile fashion after his abdominal and suprapubic hair were clipped. The above mentioned anesthetic mixture was used to anesthetize the skin at the intradermal level, followed by the preperitoneal level, after placing Ioban drape. Starting at the supra umbilically to the right, a 0.5 cm incision was performed. Dissection was carried down all the way the fascia with the 5mm Zero degree camera. The fascia was traversed and the peritoneal cavity was entered under direct visualization uneventfully. Pneumoperitoneum was instituted using CO2 insufflation up to 14 mmHg pressure. A 5-mm 30-degree scope was introduced, and confirmation of the diagnosis was obvious. Some reactive ascites was noted in the pelvis. No perforation, no suppurative inflammation. Two 5-mm ports were placed, in the RUQ one superiorly and one inferiorly, All ports were 12 cm apart one from the other in a triangular shape fashion. Lysis of adhesions between the loop of intestine causing the obstruction noted on CT, and the abdominal wall scar was done with the laparoscopic ligasure device uneventfully, and the small intestines were ran from the Rukhsana limb to the Jejunojejunal anastomosis, and then the common limb to the cecum, without any other abnormality found, (except long standing adhesions, NON obstructing). The suction was used to evacuate the reactive small ascites. All ports were removed under direct visualization without any evidence of port site bleeding. Pneumoperitoneum was evacuated. The skin of all wounds were approximated using 4-0 Antibacterial Monocryl in a running subcuticular fashion, followed by Dermabond skin glue after further more local anesthetic was injected. Patient tolerated the procedure very well without any complications, was extubated in the OR, and sent to the PACU in stable condition. He will open up within one to 2 days, and can eat regular diet after he tolerates full liquid diet.
[2024-05-25] MEDS: CEFAZOLIN 2 GM/100 ML PREMIX 100 ML IV (21:25)
[2024-05-25] MEDS: metroNIDAZOLE 500 MG/100 ML PIGGYBACK 100 MG IV (21:30)
--- NOTE | 2024-05-25 22:01 | SUR.OPER ---
Supine on padded OR bed, head on pillow, arms secured on padded arm boards at <90 degrees abduction, legs uncrossed, safety belt at thigh, tape over blanket over lower legs.
[2024-05-25] MEDS: LIDOCAINE 1% W/EPI 20 ML INJ (22:08)
[2024-05-25] MEDS: BUPIVACAINE 0.5% (PF) 30 ML VIAL INJ (22:22)
[2024-05-25] MEDS: LACTATED RINGERS 1,000 ML 125 ML IV (23:33)
[2024-05-26] VITALS (11 sets, daily range): BP systolic 123–145; BP diastolic 66–84; PULSE 69–74; RESP 13–26; TEMP 35.8–36.1; O2SAT 93–96; BMI 28.5
[2024-05-26 01:09] LABS: MRSA (Nasal) PCR NOT DETECTED (Not Detect)
[2024-05-26 04:29] LABS: Add Manual Diff / Slide Review NO; Basophils Absolute Auto 0 /uL (0-100); Basophils Percent Auto 0.1 % (0-2); Eosinophils Absolute Auto 0 /uL (0-450); Hematocrit 37.9 % (41-53); Lymphocytes Absolute Auto 600 /uL (1100-4500); Lymphocytes Percent Auto 6.8 % (25-40); Mean Corpuscular HGB Conc 34.1 % (30-36); Mean Corpuscular Hemoglobin 31.5 PG (26-34); Mean Corpuscular Volume 92.2 fL (80-100); Monocytes Absolute Auto 200 /uL (0-900); Monocytes Percent Auto 1.8 % (3-14); Neutrophils Absolute Auto 7800 /uL (1500-7000); Neutrophils Percent Auto 91.3 % (50-75); Platelet Count 194 X10^3/uL (150-400); Red Blood Cell Count 4.12 X10^6/uL (4.5-5.9); Red Cell Distribution Width 13.5 % (11.6-14.8); White Blood Cell Count 8.6 X10^3/uL (4.5-11.0)
[2024-05-26 04:50] LABS: BUN Creatinine Ratio 15.3 (6-22); Blood Urea Nitrogen 17 mg/dL (9-20); Calcium 9.8 mg/dL (8.4-10.2); Carbon Dioxide 24 mmol/L (22-32); Chloride 105 mmol/L (98-107); Estimated Glomerular Filt Rate > 60 mL/min (>60); Glucose 131 mg/dL (80-110); HEMOLYSIS < 15 (0-50); Potassium 4.7 mmol/L (3.4-5.1); Sodium 136 mmol/L (137-145)
--- NOTE | 2024-05-26 06:03 | PM.HP.1 ---
History of Present Illness History of Present Illness Chief complaint: digestive issues sent by [facility] Narrative: 74-year-old male with past medical history of non-insulin independent diabetes, arrhythmia requiring pacemaker, multiple recurrent diverticulitis requiring abdominal surgery, morbid obesity requiring stomach stapling for weight loss and bleeding ulcers presents with complaint of abdominal pain. Per the patient's report, the patient started to have increasing generalized abdominal pain and distention that started yesterday. The patient states his abdominal pain is severe and associated with nausea but denies any vomiting. The patient also had a bowel movement yesterday but still feels bloated. The patient denies any GI bleeding, fever, chills, chest pain or shortness of breath . In our emergency room, the patient was hemodynamically stable with benign labs. There's no sign of sepsis. CT scan reviews signs of intestinal volvulus. General surgery was consulted and planned to take the patient directly to the OR. Medicine service was requested to admit the patient. COUNTS INCLUDE 234 BEDS AT THE [facility] Medical History (Updated 05/25/24 @ 21:20 by Kimberlee Cam MD) History of gastric ulcer History of diverticulitis Pacemaker Surgical History (Updated 05/25/24 @ 18:11 by Janine Freeman MD) History of gastric stapling Social History household members: family Smoking Status: Never smoker Meds Home Medications and Allergies Home Medications Medication Instructions Recorded Confirmed Type atorvastatin 20 mg tablet 20 mg PO ONCE PM 05/25/24 05/25/24 History empagliflozin 10 mg tablet 10 mg PO DAILY 05/25/24 05/25/24 History (Jardiance) ezetimibe 10 mg tablet 10 mg PO DAILY 05/25/24 05/25/24 History irbesartan 300 mg tablet 300 mg PO DAILY 05/25/24 05/25/24 History nebivolol 5 mg tablet 5 mg PO DAILY 05/25/24 05/25/24 History omeprazole 40 mg capsule,delayed 40 mg PO BID 05/25/24 05/25/24 History release semaglutide 0.25 mg or 0.5 mg (2 1 mg SUBCUT WEEKLY Diabetes 05/25/24 05/25/24 History mg/3 mL) subcutaneous pen injector (Ozempic) sucralfate 1 gram tablet 1 g PO BID 05/25/24 05/25/24 History testosterone 2 pump topical DAILY 05/25/24 05/25/24 History Allergies Allergy/AdvReac Type Severity Reaction Status Date / Time No Known Drug Allergies Allergy Verified 05/25/24 15:16 Review of Systems Review of Systems Narrative: 12 points of ROS are negative except for what was mentioned per HPI. Exam Vital Signs (past 8 hours): - 05/25/24 22:33 05/25/24 22:39 05/25/24 22:44 Temperature 97.3 F L Pulse Rate 90 82 78 Respiratory Rate 18 18 18 Blood Pressure 130/80 131/70 130/70 Pulse Oximetry 93 96 95 Oxygen Delivery Method Nasal Cannula Nasal Cannula Oxygen Flow Rate 2 2 Fraction of Inspired Oxygen 05/25/24 22:49 05/25/24 23:02 05/25/24 23:11 Temperature 97.6 F Pulse Rate 71 72 71 Respiratory Rate 16 16 Blood Pressure 125/68 127/69 Pulse Oximetry 94 95 91 Oxygen Delivery Method Room Air Room Air Oxygen Flow Rate Fraction of Inspired Oxygen 05/25/24 23:12 05/25/24 23:12 05/25/24 23:30 Temperature 97.4 F L Pulse Rate 72 69 Respiratory Rate 16 15 Blood Pressure 120/67 127/69 Pulse Oximetry 92 96 Oxygen Delivery Method Oxygen Flow Rate 2 2 Fraction of Inspired Oxygen 05/25/24 23:34 05/25/24 23:45 05/25/24 23:50 Temperature Pulse Rate 69 Respiratory Rate Blood Pressure Pulse Oximetry 94 95 93 Oxygen Delivery Method Nasal Cannula Nasal Cannula Nasal Cannula Oxygen Flow Rate 2 2 2 Fraction of Inspired Oxygen 28 05/26/24 00:00 05/26/24 00:00 05/26/24 00:11 Temperature 96.5 F L Pulse Rate 69 69 Respiratory Rate 13 Blood Pressure 127/66 Pulse Oximetry 93 93 Oxygen Delivery Method Nasal Cannula Oxygen Flow Rate 4 4 Fraction of Inspired Oxygen 36 05/26/24 00:15 05/26/24 01:00 05/26/24 01:00 Temperature Pulse Rate 69 Respiratory Rate 15 Blood Pressure 135/74 Pulse Oximetry 95 Oxygen Delivery Method Nasal Cannula Oxygen Flow Rate 4 Fraction of Inspired Oxygen 05/26/24 02:00 05/26/24 02:00 05/26/24 03:00 Temperature Pulse Rate 69 Respiratory Rate 16 Blood Pressure 125/77 Pulse Oximetry 94 95 Oxygen Delivery Method Nasal Cannula Oxygen Flow Rate 4 Fraction of Inspired Oxygen 05/26/24 04:00 05/26/24 04:00 Temperature 97.0 F L Pulse Rate 70 Respiratory Rate 15 Blood Pressure 145/84 H Pulse Oximetry 95 Oxygen Delivery Method Oxygen Flow Rate 4 Fraction of Inspired Oxygen Fraction of Inspired Oxygen 36 SaO2/FiO2 Ratio 258 Oxygen Delivery Method Nasal Cannula Oxygen Flow Rate 4 Narrative Exam Narrative: GENERAL: The patient is not in any acute distressed. Awake and alert. HEENT: Nonicteric sclerae, PERRLA, EOMI. Oropharynx clear. Moist mucous membranes. Conjunctivae appear well perfused. HEART: Regular rate and rhythm without murmurs. No lower extremities edema. LUNGS: Clear to auscultation bilaterally. No wheezing, crackles or rhonchi ABDOMEN: Soft, decreased bowel sounds, surgical small laprascopic incision site clean and intact. Generalized tenderness without rebound. SKIN: No rash, no excessive bruising, petechiae, or purpura. NEUROLOGIC: AxO x 3. Cranial nerves II-XII intact without motor/sensory deficit. Objective Labs 05/26/24 03:51 05/26/24 03:51 Labs: Laboratory Results - last 24 hr 05/25/24 05/25/24 05/25/24 15:30 19:37 23:17 WBC 6.8 RBC 4.41 L Hgb 13.9 Hct 40.7 L MCV 92.5 MCH 31.5 MCHC 34.0 RDW 13.7 Plt Count 225 Neut % (Auto) 68.4 Lymph % (Auto) 23.5 L [place] % (Auto) 6.0 Eos % (Auto) 1.2 L Baso % (Auto) 0.9 Neut # (Auto) 4700 Lymph # (Auto) 1600 [place] # (Auto) 400 Eos # (Auto) 100 Baso # (Auto) 100 Sodium 137 Potassium 4.1 Chloride 103 Carbon Dioxide 27 BUN 16 Creatinine 1.24 Estimated GFR > 60 BUN/Creatinine Ratio 12.9 Glucose 103 Lactate 1.0 Calcium 10.1 Total Bilirubin 0.9 AST 34 ALT 29 Alkaline Phosphatase 111 Total Protein 8.2 Albumin 4.6 Globulin 3.6 Albumin/Globulin Ratio 1.3 Lipase 100 Nasal Screen MRSA (PCR) Not detected 05/26/24 03:51 WBC 8.6 RBC 4.12 L Hgb 13.0 L Hct 37.9 L MCV 92.2 MCH 31.5 MCHC 34.1 RDW 13.5 Plt Count 194 Neut % (Auto) 91.3 H D Lymph % (Auto) 6.8 L [place] % (Auto) 1.8 L Eos % (Auto) 0.0 L Baso % (Auto) 0.1 Neut # (Auto) 7800 H Lymph # (Auto) 600 L [place] # (Auto) 200 Eos # (Auto) 0 Baso # (Auto) 0 Sodium 136 L Potassium 4.7 Chloride 105 Carbon Dioxide 24 BUN 17 Creatinine 1.11 Estimated GFR > 60 BUN/Creatinine Ratio 15.3 Glucose 131 H Lactate Calcium 9.8 Total Bilirubin AST ALT Alkaline Phosphatase Total Protein Albumin Globulin Albumin/Globulin Ratio Lipase Nasal Screen MRSA (PCR) Assessment & Plan Assessment & Plan narrative: Intestinal Volvulus. Admit the patient to medical telemetry inpatient. Of note patient was taken directly from ER to OR by general surgery. Appreciate general surgery input and management. NPO for now with IV fluid. Appreciate post-op surgical care per general surgery. Defer DVT prophylaxis per general surgery. Non insulin dependent diabetes. Patients glucose is normal at this point. Will continue to monitor for now and will SQ insulin if needed. Hold all home DM medications. History of arrhythmia on pacemaker. Continue monitor on telemetry. HTN. Monitor BP and treat if needed DVT prophylaxis SCDs and deferred pharmacological prophylaxis per general surgery. Code status full code Disposition likely home in 2 to 3 days if no surgical complication Time-Based Coding :: [TOTAL MINUTES] spent with patient and on the chart (including review of chart, obtaining history, exam, reviewing outside data, placing orders, documenting exam and treatment plan, and counseling patient) on [DATE].
--- NOTE | 2024-05-26 07:38 | PM.PN.1 ---
Subjective Subjective Interval history: Summary: admitted with a volvulus and taken to the OR last evening. S: Exam Vital Signs (past 8 hours): - 05/25/24 23:45 05/25/24 23:50 05/26/24 00:00 Temperature Pulse Rate Respiratory Rate Blood Pressure 127/66 Pulse Oximetry 95 93 Oxygen Delivery Method Nasal Cannula Nasal Cannula Oxygen Flow Rate 2 2 Fraction of Inspired Oxygen 05/26/24 00:00 05/26/24 00:11 05/26/24 00:15 Temperature 96.5 F L Pulse Rate 69 69 Respiratory Rate 13 Blood Pressure Pulse Oximetry 93 93 Oxygen Delivery Method Nasal Cannula Nasal Cannula Oxygen Flow Rate 4 4 Fraction of Inspired Oxygen 36 05/26/24 01:00 05/26/24 01:00 05/26/24 02:00 Temperature Pulse Rate 69 69 Respiratory Rate 15 16 Blood Pressure 135/74 Pulse Oximetry 95 94 Oxygen Delivery Method Oxygen Flow Rate 4 Fraction of Inspired Oxygen 05/26/24 02:00 05/26/24 03:00 05/26/24 04:00 Temperature Pulse Rate Respiratory Rate Blood Pressure 125/77 145/84 H Pulse Oximetry 95 Oxygen Delivery Method Nasal Cannula Oxygen Flow Rate 4 Fraction of Inspired Oxygen 05/26/24 04:00 Temperature 97.0 F L Pulse Rate 70 Respiratory Rate 15 Blood Pressure Pulse Oximetry 95 Oxygen Delivery Method Oxygen Flow Rate 4 Fraction of Inspired Oxygen Fraction of Inspired Oxygen 36 SaO2/FiO2 Ratio 258 Oxygen Delivery Method Nasal Cannula Oxygen Flow Rate 4 Narrative Exam Narrative: NAD, alert and oriented. Fluent speech. Lungs are clear, normal rate and effort. Heart is regular, no murmur gallop or rub. Abdomen is soft, non distended. Extremities are free of edema.[address] scan - abdomen: Radiologist's impression: 1. A segment of fluid distended small bowel loops seen in predominantly upper to mid abdomen with transition zone seen proximal and distal to the distended bowel loops as described above and associated mesenteric swelling concerning for small bowel volvulus. 2. Postsurgical changes predominantly in left side of abdomen. Normal appendix. No other area of abnormal bowel wall thickening. No free fluid or free air. No abscess collection. 3. Bilateral simple appearing renal cysts. No hydronephrosis or obstructing renal stones. Chest x-ray: Radiologist's impression: No acute cardiopulmonary pathology. Labs 05/26/24 03:51 05/26/24 03:51 Labs: Laboratory Results - last 24 hr 05/25/24 05/25/24 05/25/24 15:30 19:37 23:17 WBC 6.8 RBC 4.41 L Hgb 13.9 Hct 40.7 L MCV 92.5 MCH 31.5 MCHC 34.0 RDW 13.7 Plt Count 225 Neut % (Auto) 68.4 Lymph % (Auto) 23.5 L [place] % (Auto) 6.0 Eos % (Auto) 1.2 L Baso % (Auto) 0.9 Neut # (Auto) 4700 Lymph # (Auto) 1600 [place] # (Auto) 400 Eos # (Auto) 100 Baso # (Auto) 100 Sodium 137 Potassium 4.1 Chloride 103 Carbon Dioxide 27 BUN 16 Creatinine 1.24 Estimated GFR > 60 BUN/Creatinine Ratio 12.9 Glucose 103 Lactate 1.0 Calcium 10.1 Total Bilirubin 0.9 AST 34 ALT 29 Alkaline Phosphatase 111 Total Protein 8.2 Albumin 4.6 Globulin 3.6 Albumin/Globulin Ratio 1.3 Lipase 100 Nasal Screen MRSA (PCR) Not detected 05/26/24 03:51 WBC 8.6 RBC 4.12 L Hgb 13.0 L Hct 37.9 L MCV 92.2 MCH 31.5 MCHC 34.1 RDW 13.5 Plt Count 194 Neut % (Auto) 91.3 H D Lymph % (Auto) 6.8 L [place] % (Auto) 1.8 L Eos % (Auto) 0.0 L Baso % (Auto) 0.1 Neut # (Auto) 7800 H Lymph # (Auto) 600 L [place] # (Auto) 200 Eos # (Auto) 0 Baso # (Auto) 0 Sodium 136 L Potassium 4.7 Chloride 105 Carbon Dioxide 24 BUN 17 Creatinine 1.11 Estimated GFR > 60 BUN/Creatinine Ratio 15.3 Glucose 131 H Lactate Calcium 9.8 Total Bilirubin AST ALT Alkaline Phosphatase Total Protein Albumin Globulin Albumin/Globulin Ratio Lipase Nasal Screen MRSA (PCR) [facility] Medical History History of gastric ulcer History of diverticulitis Pacemaker Surgical History History of gastric stapling Social History household members: family Smoking Status: Never smoker Assessment & Plan Assessment & Plan narrative: 1. Intestinal Volvulus. Admit the patient to medical telemetry inpatient. Of note patient was taken directly from ER to OR by general surgery. Appreciate general surgery input and management. NPO for now with IV fluid. Appreciate post-op surgical care per general surgery. Defer DVT prophylaxis per general surgery. 2. Non insulin dependent diabetes. Patients glucose is normal at this point. Will continue to monitor for now and will SQ insulin if needed. Hold all home DM medications. 3. History of arrhythmia on pacemaker. Continue monitor on telemetry. 4. HTN. Monitor BP and treat if needed PLAN: -monitor bowel function and pain control. DVT prophylaxis SCDs and deferred pharmacological prophylaxis per general surgery. Code status full code Inpatient status, anticipate 2 midnight length of stay. Time-Based Coding :: [TOTAL MINUTES] spent with patient and on the chart (including review of chart, obtaining history, exam, reviewing outside data, placing orders, documenting exam and treatment plan, and counseling patient) on [DATE].
[2024-05-26] MEDS: SENNOSIDES 8.6 MG TABLET 17.2 MG PO (08:30)
[2024-05-26] MEDS: ENOXAPARIN 40 MG/0.4 ML SYRINGE SUBCUT (08:30)
--- NOTE | 2024-05-26 09:25 | P.DS_ITS ---
History of Present Illness History of Present Illness Chief complaint: digestive issues sent by [facility] Narrative: From H&P: 74-year-old male with past medical history of non-insulin independent diabetes, arrhythmia requiring pacemaker, multiple recurrent diverticulitis requiring abdominal surgery, morbid obesity requiring stomach stapling for weight loss and bleeding ulcers presents with complaint of abdominal pain. Per the patient's report, the patient started to have increasing generalized abdominal pain and distention that started yesterday. The patient states his abdominal pain is severe and associated with nausea but denies any vomiting. The patient also had a bowel movement yesterday but still feels bloated. The patient denies any GI bleeding, fever, chills, chest pain or shortness of breath . In our emergency room, the patient was hemodynamically stable with benign labs. There's no sign of sepsis. CT scan reviews signs of intestinal volvulus. General surgery was consulted and planned to take the patient directly to the OR. Medicine service was requested to admit the patient. Discharge Providers Provider Date of admission: 05/25/24 20:20 Discharge Date: 05/26/24 Primary care physician: Doctor Jennifer MD Consults: 05/25/24 22:48 Consult to Discharge Planning Routine Comment: General surgery, Dr. Mae. Discharge provider: Gerald Crystal MD Summary Hospital Course Discharge Diagnosis: 1. SBO and small bowel volvulus, present on admission and resolved. 2. S/P laparoscopic adhesion lysis. Hospital Course: Patient was admitted with SBO and volvulus and taken to the OR where he underwent laparoscopic decompression. She did well and progressed his diet in the morning. He felt at baseline requested discharge home. He was able to ambulate without difficulty. Status at Discharge Cognitive/behavioral status at discharge: oriented Functional status at discharge: independent ambulation Overall status at discharge: patient is back to baseline Time Spent with Patient Time spent: Greater than 30 minutes Exam Vital Signs (past 8 hours): - 05/26/24 02:00 05/26/24 02:00 05/26/24 03:00 Temperature Pulse Rate 69 Respiratory Rate 16 Blood Pressure 125/77 Pulse Oximetry 94 95 Oxygen Delivery Method Nasal Cannula Oxygen Flow Rate 4 05/26/24 04:00 05/26/24 04:00 05/26/24 05:00 Temperature 97.0 F L Pulse Rate 70 69 Respiratory Rate 15 14 Blood Pressure 145/84 H Pulse Oximetry 95 95 Oxygen Delivery Method Oxygen Flow Rate 4 05/26/24 06:00 05/26/24 07:00 05/26/24 07:00 Temperature Pulse Rate 69 Respiratory Rate 26 H Blood Pressure Pulse Oximetry 95 93 Oxygen Delivery Method Room Air Room Air Nasal Cannula Oxygen Flow Rate 05/26/24 07:00 05/26/24 08:00 05/26/24 08:00 Temperature Pulse Rate 74 69 Respiratory Rate 22 17 Blood Pressure 123/80 Pulse Oximetry 95 96 Oxygen Delivery Method Oxygen Flow Rate 05/26/24 08:21 05/26/24 08:21 Temperature Pulse Rate 69 Respiratory Rate 23 Blood Pressure 137/71 Pulse Oximetry 93 Oxygen Delivery Method Oxygen Flow Rate Fraction of Inspired Oxygen 36 SaO2/FiO2 Ratio 258 Oxygen Delivery Method Room Air,Nasal Cannula Oxygen Flow Rate 4 Narrative Exam Narrative: NAD, alert and oriented. Fluent speech. Lungs are clear, normal rate and effort. Heart is regular, no murmur gallop or rub. Abdomen is soft, non distended. Wounds all clean. Extremities are free of edema. Objective Imaging Multiple studies:: Radiologist's impression: CXR: No acute cardiopulmonary pathology. Abdomen pelvis CT: 1. A segment of fluid distended small bowel loops seen in predominantly upper to mid abdomen with transition zone seen proximal and distal to the distended bowel loops as described above and associated mesenteric swelling concerning for small bowel volvulus. 2. Postsurgical changes predominantly in left side of abdomen. Normal appendix. No other area of abnormal bowel wall thickening. No free fluid or free air. No abscess collection. 3. Bilateral simple appearing renal cysts. No hydronephrosis or obstructing renal stones. Labs 05/26/24 03:51 05/26/24 03:51 Labs: Laboratory Results - last 24 hr 05/25/24 05/25/24 05/25/24 15:30 19:37 23:17 WBC 6.8 RBC 4.41 L Hgb 13.9 Hct 40.7 L MCV 92.5 MCH 31.5 MCHC 34.0 RDW 13.7 Plt Count 225 Neut % (Auto) 68.4 Lymph % (Auto) 23.5 L [place] % (Auto) 6.0 Eos % (Auto) 1.2 L Baso % (Auto) 0.9 Neut # (Auto) 4700 Lymph # (Auto) 1600 [place] # (Auto) 400 Eos # (Auto) 100 Baso # (Auto) 100 Sodium 137 Potassium 4.1 Chloride 103 Carbon Dioxide 27 BUN 16 Creatinine 1.24 Estimated GFR > 60 BUN/Creatinine Ratio 12.9 Glucose 103 Lactate 1.0 Calcium 10.1 Total Bilirubin 0.9 AST 34 ALT 29 Alkaline Phosphatase 111 Total Protein 8.2 Albumin 4.6 Globulin 3.6 Albumin/Globulin Ratio 1.3 Lipase 100 Nasal Screen MRSA (PCR) Not detected 05/26/24 03:51 WBC 8.6 RBC 4.12 L Hgb 13.0 L Hct 37.9 L MCV 92.2 MCH 31.5 MCHC 34.1 RDW 13.5 Plt Count 194 Neut % (Auto) 91.3 H D Lymph % (Auto) 6.8 L [place] % (Auto) 1.8 L Eos % (Auto) 0.0 L Baso % (Auto) 0.1 Neut # (Auto) 7800 H Lymph # (Auto) 600 L [place] # (Auto) 200 Eos # (Auto) 0 Baso # (Auto) 0 Sodium 136 L Potassium 4.7 Chloride 105 Carbon Dioxide 24 BUN 17 Creatinine 1.11 Estimated GFR > 60 BUN/Creatinine Ratio 15.3 Glucose 131 H Lactate Calcium 9.8 Total Bilirubin AST ALT Alkaline Phosphatase Total Protein Albumin Globulin Albumin/Globulin Ratio Lipase Nasal Screen MRSA (PCR) [facility] Medical History History of gastric ulcer History of diverticulitis Pacemaker Surgical History History of gastric stapling Social History household members: family Smoking Status: Never smoker Discharge Assessment & Plan Assessment and Plan Assessment: 1. SBO and small bowel volvulus, present on admission and resolved. 2. S/P laparoscopic adhesion lysis. Plan of Treatment: Stable for discharge home we will stay in touch over the weekend if he is any issues. Discharge Plan Discharge Plan Patient Disposition: Home Provider Discharge Comment: Stable for discharge home. Discharge orders & Medications Prescriptions: Continued atorvastatin 20 mg tablet 20 mg PO ONCE PM omeprazole 40 mg capsule,delayed release(DR/EC) 40 mg PO BID ezetimibe 10 mg tablet 10 mg PO DAILY nebivolol 5 mg tablet 5 mg PO DAILY Jardiance 10 mg tablet 10 mg PO DAILY Ozempic 0.25 mg or 0.5 mg (2 mg/3 mL) pen injector 1 mg SUBCUT WEEKLY sucralfate 1 gram tablet 1 g PO BID irbesartan 300 mg Tablet 300 mg PO DAILY testosterone 20.25 mg/1.25 gram (1.62 %) gel in metered-dose pump 2 pump topical DAILY Follow up/Referrals: Jennifer,, [Primary Care Provider] - Discharge Health Status Multidrug resistant organism: No MDRO Diet/Activity/Treatments Diet: Regular Visit Report/Discharge Packet Instructions: DI for Volvulus Repair-Adult, [facility]: Wound Care Stand Alone Forms: Patient Portal/API, Surgery Discharge Discharge Data Primary Care Provider: Doctor Jennifer
--- NOTE | 2024-05-26 11:27 | CM.DANOTE ---
Initial DCP Assessment Note Pt is a 74 yo male, resident of [place], now POD#2 from Exploratory laparoscopy and Lysis of adhesions PCP: Out of state provider Payer: M[employer] Reviewed chart, pt discussed in multidisciplinary rounds this morning. Patient is discharging home today, close outpatient follow up recommended once patient returns home. No barriers identified at this time to patient's safe discharge home w/family to assist; close outpatient f/u recommended. CHRIS Giles Discharge Planning/Care Management CM Discharge Assessment Start: 05/26/24 11:24 Freq: Status: Discharge Protocol: Document 05/26/24 11:25 EV (Rec: 05/26/24 11:27 EV [id number]) Discharge Planning Assessment Assigned Drop Board Worker CHRIS Smith DPOA/Assigned Designee Name Denys Tinoco, son (ID) Contact Information [phone] Advance Directives? No History Provided By Patient,Medical Record Prior Living Arrangements House Household Members family Type of transporation used prior to Drives own vehicle admit Independent with ADL's Yes Is patient alert and oriented? Yes Barriers to Discharge No Discharge Plan Home Transportation Arrangement Family Referrals Initiated None needed
--- NOTE | 2024-05-26 12:09 | PM.PNPO.1 ---
Subjective Subjective Date Patient Seen: 05/26/24 Time Patient Seen: 12:10 Interval history: POD 1 lysis of adhesions for sbo bowel viable tolerating clears +flatus Exam Vital Signs (past 8 hours): - 05/26/24 05:00 05/26/24 06:00 05/26/24 07:00 Pulse Rate 69 69 Respiratory Rate 14 26 H Blood Pressure Pulse Oximetry 95 95 93 Oxygen Delivery Method Room Air 05/26/24 07:00 05/26/24 07:00 05/26/24 08:00 Pulse Rate 74 Respiratory Rate 22 Blood Pressure 123/80 Pulse Oximetry 95 Oxygen Delivery Method Room Air Nasal Cannula 05/26/24 08:00 05/26/24 08:21 05/26/24 08:21 Pulse Rate 69 69 Respiratory Rate 17 23 Blood Pressure 137/71 Pulse Oximetry 96 93 Oxygen Delivery Method Fraction of Inspired Oxygen 36 SaO2/FiO2 Ratio 258 Oxygen Delivery Method Room Air,Nasal Cannula Oxygen Flow Rate 4 Narrative Exam Narrative: Gen-Adult man alert and oriented Abdomen-soft lap incisions cdi Objective Labs 05/26/24 03:51 05/26/24 03:51 Labs: Laboratory Results - last 24 hr 05/25/24 05/25/24 05/25/24 15:30 19:37 23:17 WBC 6.8 RBC 4.41 L Hgb 13.9 Hct 40.7 L MCV 92.5 MCH 31.5 MCHC 34.0 RDW 13.7 Plt Count 225 Neut % (Auto) 68.4 Lymph % (Auto) 23.5 L [place] % (Auto) 6.0 Eos % (Auto) 1.2 L Baso % (Auto) 0.9 Neut # (Auto) 4700 Lymph # (Auto) 1600 [place] # (Auto) 400 Eos # (Auto) 100 Baso # (Auto) 100 Sodium 137 Potassium 4.1 Chloride 103 Carbon Dioxide 27 BUN 16 Creatinine 1.24 Estimated GFR > 60 BUN/Creatinine Ratio 12.9 Glucose 103 Lactate 1.0 Calcium 10.1 Total Bilirubin 0.9 AST 34 ALT 29 Alkaline Phosphatase 111 Total Protein 8.2 Albumin 4.6 Globulin 3.6 Albumin/Globulin Ratio 1.3 Lipase 100 Nasal Screen MRSA (PCR) Not detected 05/26/24 03:51 WBC 8.6 RBC 4.12 L Hgb 13.0 L Hct 37.9 L MCV 92.2 MCH 31.5 MCHC 34.1 RDW 13.5 Plt Count 194 Neut % (Auto) 91.3 H D Lymph % (Auto) 6.8 L [place] % (Auto) 1.8 L Eos % (Auto) 0.0 L Baso % (Auto) 0.1 Neut # (Auto) 7800 H Lymph # (Auto) 600 L [place] # (Auto) 200 Eos # (Auto) 0 Baso # (Auto) 0 Sodium 136 L Potassium 4.7 Chloride 105 Carbon Dioxide 24 BUN 17 Creatinine 1.11 Estimated GFR > 60 BUN/Creatinine Ratio 15.3 Glucose 131 H Lactate Calcium 9.8 Total Bilirubin AST ALT Alkaline Phosphatase Total Protein Albumin Globulin Albumin/Globulin Ratio Lipase Nasal Screen MRSA (PCR) [facility] Medical History History of gastric ulcer History of diverticulitis Pacemaker Surgical History History of gastric stapling Social History household members: family Smoking Status: Never smoker Assessment & Plan Post-op Postoperative Procedures: Procedures Operation Date: 05/25/24 20:45 Actual Procedure Side Surgeon p diagnostic laproscopy, lysis of adhesions Not Applicable Evelin Troncoso MD Postoperative status narrative: Doing well POD1 lysis of adhesions -Advance diet as tolerated -If tolerant of reg diet may dc home -No lifting >10 lbs x 4 weeks -F/u general surgery 2 weeks
== END 2024-05-26 09:32 | disposition home or self-care (01) | DRG 337 ==
LOC: ED 20:08 → AC 20:22 → ICU 23:03
PROVIDERS: Emergency Medicine; Surgery; Admitting Provider Internal Medicine; Emergency Provider Emergency Medicine; Referring Provider Emergency Medicine; Visit Provider Internal Medicine
PROC: 0DN84ZZ Release Small Intestine, Percutaneous Endoscopic Approach (ICD-10-PCS; CPT 49000; principal; 2024-05-25 20:45)
DX: K56.50 Intestinal adhesions [bands], unspecified as to partial versus complete obstruction (principal); E11.9 Type 2 diabetes mellitus without complications; I10 Essential (primary) hypertension; K56.2 Volvulus; I49.9 Cardiac arrhythmia, unspecified; Z95.0 Presence of cardiac pacemaker; Z79.85 Long-term (current) use of injectable non-insulin antidiabetic drugs; Z98.84 Bariatric surgery status; Z79.84 Long term (current) use of oral hypoglycemic drugs
CPT/HCPCS: 36415; 44005; 71045; 74177; 80048; 80053; 81003; 83605; 83690; 85025; 87797; 93005; 93010; 94762; 96361; 96374; 96375; 96376; 99222; 99285; J0690; J1100; J1170; J1650; J2250; J2405; J2470; J2704; J3010; Q9967